=== PATIENT | female | born 2000 | race African-American/Black ===

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

== ENCOUNTER 2019-08-23 08:20 | Emergency (ER) | payer SELFPAY ==
--- NOTE | 2019-08-23 09:35 | ER Document Report ---
ED Medical Screen (RME) - General Chief Complaint: Hand Pain Stated Complaint: FINGER PAIN Time Seen by Provider: 08/23/19 09:33 Primary Care Provider: [facility] [Provider Group] - Follow up as needed [facility] [Provider Group] - Follow up as needed Mode of Arrival: Ambulatory Information source: Patient Notes: 19-year-old female presents emergency department with paronychia to her right third digit. Reports is been there a couple days. Denies history of diabetes. Reports she bites her nails. I have greeted and performed a rapid initial assessment of this patient. A comprehensive ED assessment and evaluation of the patient, analysis of test results and completion of the medical decision making process will be conducted by additional ED providers. TRAVEL OUTSIDE OF THE [place] IN LAST 30 DAYS: No - Related Data Allergies/Adverse Reactions: No Known Allergies Allergy (Verified 08/23/19 09:26) Past Medical History Renal/ Medical History: Denies: Hx Peritoneal Dialysis Physical Exam - Vital signs Vitals: Temp Pulse Resp BP Pulse Ox 98.4 F 70 16 132/73 H 100 08/23/19 08:25 08/23/19 08:25 08/23/19 08:25 08/23/19 08:25 08/23/19 08:25 Course - Vital Signs Vital signs: Temp Pulse Resp BP Pulse Ox 98.7 F 65 16 121/67 100 08/23/19 11:05 08/23/19 11:05 08/23/19 11:05 08/23/19 11:05 08/23/19 11:05 Doctor's Discharge - Discharge Clinical Impression: Paronychia of finger, Encounter for incision and drainage procedure Condition: Stable Disposition: HOME, SELF-CARE Instructions: Cephalexin ([facility]), Paronychia ([facility]), Post Incision and Drainage, Trimethoprim-Sulfa ([facility]) Additional Instructions: Return immediately for any new or worsening symptoms Followup with your primary care provider, call tomorrow to make a followup appointment Prescriptions: Sulfamethoxazole/Trimethoprim [Bactrim Ds Tablet] 1 each PO BID #20 tablet Cephalexin Monohydrate [Keflex 500 mg Capsule] 500 mg PO Q6H 5 Days capsule Naproxen [Naprosyn 250 Nmg Tablet] 1 tab PO BID #14 tablet Referrals: [facility] [Provider Group] - Follow up as needed [facility] [Provider Group] - Follow up as needed
[2019-08-23] MEDS ORDERED: LIDOCAINE 1% INJ (10 MG/ML) 10 ML MDV INJ ONE (10:17)
[2019-08-23] MEDS ORDERED: CEPHALEXIN 500 MG CAPSULE PO ONE (11:04)
[2019-08-23] MEDS ORDERED: SULFAMETHOXAZOLE/TRIMETHOPRIM 800-160 MG TABLET PO ONE (11:04)
--- NOTE | 2019-08-23 11:07 | ER Document Report ---
HPI - HPI Patient complains to provider of: Finger infection Time Seen by Provider: 08/23/19 09:33 Onset: Other - 4 days Onset/Duration: Worse Quality of pain: Achy Pain Level: 1 Context: Patient with tenderness swelling about the right third finger for the past 4 days. Patient denies any trauma. Patient denies any fever. Associated Symptoms: denies: Fever, Vomiting Exacerbated by: Movement Relieved by: Denies Similar symptoms previously: No Recently seen / treated by doctor: No - ROS ROS below otherwise negative: Yes Systems Reviewed and Negative: Yes All other systems reviewed and negative - CONSTITUTIONAL Constitutional: DENIES: Fever - GASTROINTESTINAL Gastrointestinal: DENIES: Nausea - REPRODUCTIVE Reproductive: DENIES: : - MUSCULOSKELETAL Musculoskeletal: REPORTS: Extremity pain, Swelling - DERM Skin Problems: Pustule Past Medical History - General Information source: Patient - Social History Smoking Status: Never Smoker Frequency of alcohol use: None Drug Abuse: None Family History: Reviewed & Not Pertinent Patient has suicidal ideation: No Patient has homicidal ideation: No - Medical History Medical History: Negative Renal/ Medical History: Denies: Hx Peritoneal Dialysis Surgical Hx: Negative Vertical Provider Document - CONSTITUTIONAL Agree With Documented VS: Yes Exam Limitations: No Limitations General Appearance: WD/WN, No Apparent Distress - INFECTION CONTROL TRAVEL OUTSIDE OF THE [place] IN LAST 30 DAYS: No - HEENT HEENT: Atraumatic, Normocephalic - NECK Neck: Normal Inspection - RESPIRATORY Respiratory: No Respiratory Distress - CARDIOVASCULAR Pulses: Normal: Radial - MUSCULOSKELETAL/EXTREMETIES Musculoskeletal/Extremeties: MAEW, FROM, Tender - Redness to right third fingertip, Edema - NEURO Level of Consciousness: Awake, Alert, Appropriate Motor/Sensory: No Motor Deficit - DERM Integumentary: Warm, Dry, Abscess - Patient with swelling to the ulnar aspect of the right third fingertip with yellow-green coloration around nail margin Course - Vital Signs Vital signs: Temp Pulse Resp BP Pulse Ox 98.4 F 70 16 132/73 H 100 08/23/19 08:25 08/23/19 08:25 08/23/19 08:25 08/23/19 08:25 08/23/19 08:25 Procedures - Incision and Drainage Right Finger 3rd digit Type: Simple Anesthetic type: 1% Lidocaine Blade size: 11 I&D procedure: Shurcdees applied Incision Method: Incision made by scalpel Amount/type of drainage: Moderate amount of purulent drainage Discharge - Discharge Clinical Impression: Encounter for incision and drainage procedure Paronychia of finger Qualifiers: Laterality: right Qualified Code(s): L03.011 - Cellulitis of right finger Condition: Stable Disposition: HOME, SELF-CARE Instructions: Cephalexin ([facility]), Paronychia ([facility]), Post Incision and Drainage, Trimethoprim-Sulfa ([facility]) Additional Instructions: Return immediately for any new or worsening symptoms Followup with your primary care provider, call tomorrow to make a followup appointment Prescriptions: Sulfamethoxazole/Trimethoprim [Bactrim Ds Tablet] 1 each PO BID #20 tablet Cephalexin Monohydrate [Keflex 500 mg Capsule] 500 mg PO Q6H 5 Days capsule Naproxen [Naprosyn 250 Nmg Tablet] 1 tab PO BID #14 tablet Referrals: [facility] [Provider Group] - Follow up as needed [facility] [Provider Group] - Follow up as needed
[2019-08-23 11:10] VITALS: BP 121/67
== END 2019-08-23 11:28 | disposition home or self-care (01) ==
LOC: ER 08:20
DX: L03.011 Cellulitis of right finger (principal); L02.511 Cutaneous abscess of right hand
CPT/HCPCS: 99283